=== PATIENT | female | born 1975 | race Caucasian/White ===

== ENCOUNTER 2017-05-20 10:53 | Emergency (ER) | payer MEDICAID ==
[2015-06-07 06:31] VITALS: BMI 47.1
== END 2017-05-20 14:20 | disposition home or self-care (01) ==
LOC: D.ER 10:53
DX: G43.909 Migraine, unspecified, not intractable, without status migrainosus (principal)

== ENCOUNTER 2017-09-23 07:25 | Day surgery (SDC) | payer MEDICAID ==
[~2017-09-23] VITALS: Ht 167.6 cm; Wt 140.6 kg
--- NOTE | ~2017-09-23 | OP ---
PATIENT NAME: BRE MACDONALD MEDICAL RECORD: [id number] :79 LOCATION:[facility] ADMISSION DATE: SURGEON: TODD SHELBY MD DATE OF OPERATION: 09/23/2017 PREOPERATIVE DIAGNOSES: Chronic maxillary, ethmoid, and sphenoid sinusitis; turbinate hypertrophy; nasal obstruction; and left doug bullosa. POSTOPERATIVE DIAGNOSES: Chronic maxillary, ethmoid, and sphenoid sinusitis; turbinate hypertrophy; nasal obstruction; and left doug bullosa. PROCEDURE: Left endoscopic sphenoidotomy, left excision of doug bullosa, bilateral anterior ethmoidectomy, bilateral middle meatal antrostomy, and bilateral inferior turbinate reduction. SURGEON: Todd Shelby MD ANESTHESIA: General orotracheal. BLOOD LOSS: Less than 55 cc. SPECIMENS: Mucoid material from the left doug bullosa and left maxillary sinus for cultures. NASAL PACKING: None. COMPLICATIONS: None. DISPOSITION: Recovery stable. FINDINGS: The left doug bullosa and the left maxillary sinus were full of extremely thick mucoid material. The left sphenoid appeared well aerated with no secretions or polyps. COMPLICATIONS: None. DISPOSITION: Recovery stable. DESCRIPTION OF PROCEDURE: She was brought to the operating room and placed in supine position, sedated and intubated by anesthesia. The table was turned 90 degrees. Head drapes were applied and she was positioned for nasal endoscopy. Using a headlight and nasal speculum, the inferior turbinates, root of the middle turbinate, lateral nasal wall were both injected with a total of 1.5 cc of 1% lidocaine with 1:100,000 epinephrine. Three Afrin pledgets were placed in each side of the nose and she was positioned, prepped and draped after that. Then, using the grasper, all the pledgets were removed from the left side of the nose. A 0-degree scope was used to examine the nose. Inferior turbinate was large. A Clearbrook elevator was used to outfracture a little bit, but the middle meatus appeared normal. The middle turbinate was large, rounded. The nasal vault was not easily visible with a large middle turbinate there. The nasopharynx was normal as was the nasal wall and the septum. A freer was used to slightly lateralize the middle turbinate. It was obvious it was full. Straight biting forceps was used to enter the doug bullosa anteriorly. There was obvious thick mucus in there. A #7 suction was large enough to suction that out, but a #9 suction on a Luki trap was used to evacuate a very thick glob of OPERATIVE REPORT [id number] BRE MACDONALD mucus, which came out pretty much intact in 1 piece that was sent for culture. Doug bullosa was then hollow. The middle turbinate was then lateralized so to proceed posteriorly. The superior turbinate was identified. It was generally lateralized as well and the sphenoid ostia was visualized. A #7 suction was used to enter the sinus. It was clean and #9 suction was then used to enter it a little bit inferomedially. It was well aerated. Some saline was used to irrigate the sinus in it and just clean saline returned. The suction was removed. The scope was used to visualize the sinus and it just appeared to be the normal mucosa and open sinus. The turbinate was then medialized slightly and the uncinate was fractured and a microdebrider was used to take down the inferior medial ethmoid bulla and proceed posteriorly into the ethmoid. There was some thickened mucosal changes and polypoid changes in the sinuses, but there was no purulence. The middle meatus was kind of swollen shut, but it was entered with a curved olive tip suction and again a very thick yellow mucoid material was encountered and again a Luki trap was used to evacuate that. A backbiter was then used to open up that maxillary sinus and a very large curved olive tip suction was inserted. It was irrigated with saline and nice clean large ostia was created there. An Afrin pledget was placed in the ethmoid cavity and then the right side was addressed. All the Afrin pledgets were removed. The scope was used to examine the nose. Nasal vault was normal. Middle turbinate was normal, was enlarged like the left one. The inferior turbinate was large and it was outfractured slightly. The middle turbinate was medialized and the uncinate was fractured anteriorly. It was taken down with a microdebrider. The anterior ethmoidectomy was completed starting inferomedially and again some minimal mucosal polypoid changes, but no purulence in the sinus. The curved olive tip suction was used to enter the maxillary sinus. It was aerated normal. The microdebrider was used to just open up that ostia nicely. It was clean. It was irrigated with saline. The left Afrin pledget was then again removed. The inferior turbinates were medialized. A Gruenwald was used to take down the inferior redundant portion of the inferior turbinates. The bleeding was stopped with suction cautery on both sides and they were both outfractured with a Clearbrook elevator. Then, both maxillary sinuses were irrigated with saline and a couple cc of mupirocin was put in each. The ethmoid area was irrigated out. It was clean. There was really no bleeding. The sphenoid ostia on the left side was clear. The nasopharynx was suctioned. There was really no significant bleeding. The eyes were examined and normal. She was awakened, extubated, and transported to recovery in good condition. No complications. TRANSINT:[id number] Voice Confirmation ID: [id number] DOCUMENT ID: [id number] TODD SHELBY MD at 1357 CC: [id number] DICTATION DATE: 09/23/17 1334 EQUIPMENT WASHER: 09/23/17 1500 [facility] 09/23/17 [facility] [address] [place] [address]
--- NOTE | ~2017-09-23 | HP ---
PATIENT: ALEXANDRIA MACDONALD [facility] MEDICAL RECORD: [id number] ACCOUNT: [id number] LOCATION:[facility] : 79 ADMISSION DATE: 09/23/17 HISTORY AND PHYSICAL EXAMINATION HISTORY OF PRESENT ILLNESS: Alexandria was sent over by Dr. [place]. She is 41 years old. She is having persistent problems with headache and sinusitis, has been refractory to medical management. She is being admitted for a sinus surgery. PAST MEDICAL HISTORY: Otherwise negative. PAST SURGICAL HISTORY: Includes cholecystectomy, tubal ligation, and heel spur surgery. PHYSICAL EXAMINATION: GENERAL: She is a healthy-appearing and developmentally normal. FACE: Normal, symmetric, no lesions. EYES: Sclerae and conjunctivae are normal. EARS: Canals and TMs are normal. NOSE: No masses, polyps, or drainage. ORAL CAVITY AND OROPHARYNX: Turbinates in midline. Pharynx normal. NECK: No masses, adenopathy. CHEST: Clear. CARDIOVASCULAR: Regular rate and rhythm, no murmur. EXTREMITIES: Normal. ASSESSMENT AND PLAN: Includes left sphenoidotomy, left doug bullosa; excision of bilateral anterior ethmoidectomy; bilateral middle meatal antrostomies; and bilateral turbinate reduction. TRANSINT:[id number] Voice Confirmation ID: [id number] DOCUMENT ID: [id number] TODD PECK MD at 1356 CC: [id number] DICTATION DATE: 09/19/17 1523 BUSINESS ADMINISTRATION PROFESSOR: 09/19/17 1552 [facility] 09/23/17 [id number] [place] [address]
[2017-09-23 08:06] LABS: HEMATOCRIT 42.9 % (36.0-48.0); HEMOGLOBIN 13.8 g/dL (12-16); MCH 25.2 pg (26.0-34.0); MCHC 32.2 g/dL (31.0-37.0); MCV 78.3 fL (80.0-100.0); MEAN PLATELET VOLUME 9.2 fL (7.4-10.4); RBC 5.48 10x6/uL (4.00-5.40); RDW 14.4 % (11.5-14.5); WBC 8.8 10x3/uL (4.8-10.8)
[2017-09-23 08:24] VITALS: BP 155/101; Ht 167.6 cm; Wt 140.6 kg
== END 2017-09-23 15:10 | disposition home or self-care (01) ==
LOC: D.OPS 07:25 → D.PAN 07:30 → D.OPS 07:30
PROVIDERS: Anesthesiology
DX: J32.0 Chronic maxillary sinusitis (principal); J34.3 Hypertrophy of nasal turbinates; J32.2 Chronic ethmoidal sinusitis; J32.3 Chronic sphenoidal sinusitis; J34.89 Other specified disorders of nose and nasal sinuses; Z01.812 Encounter for preprocedural laboratory examination

== ENCOUNTER → 2018-07-21 16:15 | Outpatient (CLI) | payer MEDICAID ==
[2017-09-23 08:24] VITALS: BMI 50.1
== END | disposition home or self-care (01) ==
LOC: D.MRI 16:15
DX: M25.561 Pain in right knee (principal)